=== PATIENT | male | born 1970 | race Caucasian/White ===

== ENCOUNTER 2019-05-07 05:55 | Emergency (ER) | payer BC ==
[2019-05-07] MEDS ORDERED: Zofran 4 MG/2 ML VIAL IV ONE (06:05)
[2019-05-07] MEDS ORDERED: Sodium Chloride 0.9% 1000 ML 1,000 ML IV STA ×2 (06:05→07:13)
[2019-05-07] MEDS ORDERED: MORPHINE SULFATE 2 MG INJ IV ONE ×2 (06:15→08:13)
[2019-05-07] MEDS ORDERED: MORPHINE SULFATE 2 MG INJ ONE ×2 (06:19→08:16)
[2019-05-07] MEDS ORDERED: Zofran 4 MG/2 ML VIAL ONE (06:19)
[2019-05-07] MEDS ORDERED: Sodium Chloride 0.9% 1000 ML 1,000 ML ONE ×3 (06:19→08:45)
--- NOTE | 2019-05-07 06:21 | ERPHSYRPT ---
- History of Present Illness Historian: patient, family Exam Limitations: no limitations Patient Subjective Stated Complaint: pt states he has been sick since . was diagnosed with flu a on . states he has had increased pain since. Triage Nursing Assessment: pt alert and oriented, answers questions approp. pt ambulatory with steady gait noted. respirations nonlabored. exp wheezes noted in rt lower. skin warm and dry. mucous membranes dry. Timing/Duration: week(s) (1) Activities at Onset: none Quality: cramping Abdominal Pain Onset Location: generalized abdomen Pain Radiation: no radiation Severity of Pain-Max: moderate Severity of Pain-Current: moderate Modifying Factors: Improves With: vomiting Associated Symptoms: diarrhea, fever/chills, fatigue, loss of appetite, nausea, vomiting Previous symptoms: same symptoms as today Hx Tetanus, Diphtheria Vaccination/Date Given: Yes Hx Influenza Vaccination/Date Given: No Immunizations Up to Date: Yes <ROBERT BAKER - Last Filed: 05/07/19 06:34> <MALENA TINSLEY - Last Filed: 05/07/19 12:54> - History of Present Illness Time Seen by Provider: 05/07/19 06:05 Physician History: pt diagnosed with flu but was past the timeframe for tamiflu treatment. using OTCs but not getting better. No co-morbid conditions such as DM, CAD or lung dz. Mainly abd pain, NVD and weakness. (ROBERT BAKER) Allergies/Adverse Reactions: No Known Drug Allergies Allergy (Verified 05/07/19 06:15) Home Medications: No Reportable Medications [No Reported Medications] 05/07/19 [History] - Review of Systems Constitutional: Fever, Chills, Fatigue, Lethargy, Malaise, Weakness, Weight Loss (10lbs over past week.) Eyes: No Symptoms Ears, Nose, & Throat: Nose Congestion Respiratory: Cough, No Dyspnea Cardiac: No Chest Pain, No Edema, No Syncope Abdominal/Gastrointestinal: Abdominal Pain, Nausea, Vomiting, Diarrhea Genitourinary Symptoms: No Dysuria Musculoskeletal: Back Pain, Neck Pain, Myalgias Skin: No Rash Neurological: No Dizziness, No Focal Weakness, No Sensory Changes Psychological: No Symptoms Endocrine: No Symptoms All Other Systems: Reviewed and Negative <ROBERT BAKER - Last Filed: 05/07/19 06:34> - Past Medical History Pertinent Past Medical History: No - Past Surgical History Past Surgical History: Yes Male Surgical History: Testicular Surgery Other Surgical History: testicle removed - Social History Smoking Status: Former smoker Exposure to second hand smoke: No Drug Use: none Patient Lives Alone: No <ROBERT BAKER Last Filed: 05/07/19 06:34> - Physical Exam General Appearance: mild distress, alert Eye Exam: PERRL/EOMI, eyes nml inspection Ears, Nose, Throat Exam: normal ENT inspection, pharynx normal, dry mucous membranes Neck Exam: normal inspection, non-tender, supple, full range of motion Respiratory Exam: normal breath sounds, lungs clear, No respiratory distress Cardiovascular Exam: normal heart sounds, tachycardia Gastrointestinal/Abdomen Exam: soft, tenderness (Generalized), No mass, No guarding, No rebound, No hepatomegaly Rectal Exam: deferred Back Exam: normal inspection, normal range of motion, No CVA tenderness, No vertebral tenderness Extremity Exam: normal inspection, normal range of motion, pelvis stable Neurologic Exam: alert, oriented x 3, cooperative, normal mood/affect, nml cerebellar function, sensation nml, No motor deficits Skin Exam: normal color, warm, dry SpO2: 93 <ROBERT BAKER Filed: 05/07/19 06:34> - Nursing Vital Signs Nursing Vital Signs: Initial Vital Signs Temperature 98.1 F 05/07/19 06:01 Pulse Rate 119 H 05/07/19 06:01 Blood Pressure 127/99 05/07/19 06:01 O2 Sat by Pulse Oximetry 93 L 05/07/19 06:01 Pain Scale Pain Intensity 9 - Course Nursing assessment & vital signs reviewed: Yes <ROBERT BAKER - Last Filed: 05/07/19 06:34> - Course EKG Interpreted by Me: RATE ([id number]), Sinus Rhythm, NORMAL AXIS, NORMAL INTERVALS, NORMAL QRS, Other (no comparison ekg) <MALENA TINSLEY - Last Filed: 05/07/19 12:54> Ordered Tests: Active Orders 24 hr Category Date Time Status EKG-ER Only STAT Care 05/07/19 08:12 Active IV Insertion STAT Care 05/07/19 06:05 Active CHEST 1 VIEW (PORTABLE) Stat Exams 05/07/19 06:09 Completed CHEST WITH CONTRAST [CT] Stat Exams 05/07/19 10:51 Taken ABG [ARTERIAL BLOOD GASES] Stat Lab 05/07/19 12:00 Completed BLOOD CULTURE Stat Lab 05/07/19 06:45 Received BMP Stat Lab 05/07/19 08:38 Completed CBC W DIFF Stat Lab 05/07/19 06:18 Completed CMP Stat Lab 05/07/19 06:18 Completed D-DIMER QUANTITATIVE Stat Lab 05/07/19 06:45 Completed LIPASE Stat Lab 05/07/19 06:18 Completed Lactic Acid Routine Lab 05/07/19 11:47 Completed Lactic Acid Stat Lab 05/07/19 06:22 Completed Lactic Acid Stat Lab 05/07/19 08:26 Completed Manual Differential NC Stat Lab 05/07/19 06:18 Completed PROTIME WITH INR Stat Lab 05/07/19 06:18 Completed TROPONIN Q3H Lab 05/07/19 06:45 Completed TROPONIN Q3H Lab 05/07/19 11:24 Completed TROPONIN Q3H Lab 05/07/19 14:15 Ordered TROPONIN Q3H Lab 05/07/19 17:15 Ordered TROPONIN Q3H Lab 05/07/19 20:15 Ordered TROPONIN Q3H Lab 05/07/19 23:15 Ordered TSH [TSH, 3RD Generation] Stat Lab 05/07/19 11:25 Completed UA W/RFX UR CULTURE Stat Lab 05/07/19 08:30 Completed Oxygen High Flow per RT 60% RT 05/07/19 12:44 Active Respiratory Therapy Assessment DAILY RT 05/07/19 08:16 Active Medication Summary Generic Name Dose Route Start Last Admin Trade Name Freq PRN Reason Stop Dose Admin Sodium Chloride 1,000 mls @ 250 mls/hr 05/07/19 08:30 05/07/19 08:45 Sodium Chloride 0.9% 1000 Ml IV 06/06/19 08:29 250 mls/hr .Q4H MARIA C Administration Discontinued Medications Generic Name Dose Route Start Last Admin Trade Name Freq PRN Reason Stop Dose Admin Hydrocodone Bitart/Acetaminophen 15 ml 05/07/19 11:45 05/07/19 12:01 Hydrocodone-Acetamin 2.5-108/5 Ml Solution PO 05/07/19 11:46 15 ml STAT STA Administration Hydrocodone Bitart/Acetaminophen Confirm 05/07/19 11:59 Hydrocodone-Acetamin 2.5-108/5 Ml Solution Administered 05/07/19 12:00 Dose 15 ml .ROUTE .STK-MED ONE Albuterol Sulfate 2.5 mg 05/07/19 08:07 05/07/19 08:13 Proventil 2.5 Mg/3 Ml Neb IH 05/07/19 08:08 2.5 mg STAT ONE Administration Albuterol Sulfate Confirm 05/07/19 08:11 Proventil 2.5 Mg/3 Ml Neb Administered 05/07/19 08:12 Dose 2.5 mg IH .STK-MED ONE Benzonatate 200 mg 05/07/19 07:13 05/07/19 07:15 Tessalon Perles 100 Mg PO 05/07/19 07:14 200 mg STAT ONE Administration Benzonatate Confirm 05/07/19 07:14 Tessalon Perles 100 Mg Administered 05/07/19 07:15 Dose 200 mg PO .STK-MED ONE Sodium Chloride 1,000 mls @ 999 mls/hr 05/07/19 06:05 05/07/19 07:55 Sodium Chloride 0.9% 1000 Ml IV 05/07/19 07:05 Infused .Q1H1M STA Infusion Sodium Chloride Confirm 05/07/19 06:19 Sodium Chloride 0.9% 1000 Ml Administered 05/07/19 06:20 Dose 1,000 mls @ ud .ROUTE .STK-MED ONE Ceftriaxone Sodium/Dextrose 1 g in 50 mls @ 100 mls/hr 05/07/19 06:31 07:55 Rocephin 1 Gm-D5w 50 Ml Bag IV 05/07/19 07:00 Infused STAT ONE Infusion Ceftriaxone Sodium/Dextrose Confirm 05/07/19 06:34 Rocephin 1 Gm-D5w 50 Ml Bag Administered 05/07/19 06:35 Dose 1 g in 50 mls @ ud IV .STK-MED ONE Sodium Chloride 1,000 mls @ 999 mls/hr 05/07/19 07:13 05/07/19 07:55 Sodium Chloride 0.9% 1000 Ml IV 05/07/19 08:13 Infused .Q1H1M STA Infusion Sodium Chloride Confirm 05/07/19 07:14 Sodium Chloride 0.9% 1000 Ml Administered 05/07/19 07:15 Dose 1,000 mls @ ud .ROUTE .STK-MED ONE Methylprednisolone Sodium Succinate 125 mg 05/07/19 11:44 05/07/19 12:01 Solu-Medrol 125 Mg IV 05/07/19 11:45 125 mg STAT ONE Administration Methylprednisolone Sodium Succinate Confirm 05/07/19 11:59 Solu-Medrol 125 Mg Administered 05/07/19 12:00 Dose 125 mg .ROUTE .STK-MED ONE Morphine Sulfate 2 mg 05/07/19 06:15 05/07/19 06:25 Morphine Sulfate 2 Mg Inj IV 05/07/19 06:16 2 mg STAT ONE Administration Morphine Sulfate Confirm 05/07/19 06:19 Morphine Sulfate 2 Mg Inj Administered 05/07/19 06:20 Dose 2 mg .ROUTE .STK-MED ONE Morphine Sulfate 2 mg 05/07/19 08:13 05/07/19 08:43 Morphine Sulfate 2 Mg Inj IV 05/07/19 08:14 2 mg STAT ONE Administration Morphine Sulfate Confirm 05/07/19 08:16 Morphine Sulfate 2 Mg Inj Administered 05/07/19 08:17 Dose 2 mg .ROUTE .STK-MED ONE Ondansetron HCl 4 mg 05/07/19 06:05 05/07/19 06:25 Zofran 4 Mg/2 Ml Vial IV 05/07/19 06:06 4 mg STAT ONE Administration Ondansetron HCl Confirm 05/07/19 06:19 Zofran 4 Mg/2 Ml Vial Administered 05/07/19 06:20 Dose 4 mg .ROUTE .STK-MED ONE Lab/Rad Data: Laboratory Result Diagrams 05/07/19 06:18 05/07/19 08:38 Laboratory Results 05/07/19 05/07/19 05/07/19 Range/Units 12:00 11:47 11:25 WBC (4.0-10.5) K/mm3 RBC (4.1-5.6) M/mm3 Hgb (12.5-18.0) gm/dl Hct (42-50) % MCV (78-100) fl MCH (26-32) pg MCHC (32-36) g/dl RDW (11.5-14.0) % Plt Count (150-450) K/mm3 MPV (7.5-11.0) fl Segmented Neutrophils (36.-66.) % Band Neutrophils (0.0-2.0) % Lymphocytes (Manual) (24-44) % Monocytes (Manual) (0.0-12.0) % Platelet Estimate (NORMAL) RBC Morphology PT (8.83-12.87) SECONDS INR (0.8-3.0) D-Dimer (215-500) ng/mL Puncture Site RIGHT RADIAL pCO2 29 L (35-45) mmHg pO2 59 L (75-100) mmHg Base Excess -2.6 L (-2.0-2.0) O2 Saturation 90.3 L (94-100) g/dF ABG pH 7.45 (7.35-7.45) ABG HCO3 20.2 L (22-28) ABG O2 Sat (Measured) 92.3 L (95-100) % Ju[place] Test YES A-a Gradient 161 a/A Ratio 0.27 Hemoglobin 13.8 Carboxyhemoglobin 1.3 (0.0-6.9) % THgb Methemoglobin 1.0 L (1.4-1.5) % Temperature 37.0 C POC O2 Flow Rate 36 % Sodium (137-145) mmol/L Potassium 4.0 (3.5-5.1) mmol/L Chloride (98-107) mmol/L Carbon Dioxide (22-30) mmol/L Anion Gap (5-15) MEQ/L BUN (9-20) mg/dL Creatinine (0.66-1.25) mg/dL Estimated GFR ML/MIN Glucose (74-106) mg/dL Lactic Acid 6.1 H (0.4-2.0) Calcium (8.4-10.2) mg/dL Total Bilirubin (0.2-1.3) mg/dL AST (17-59) U/L ALT (0-50) U/L Alkaline Phosphatase (38-126) U/L Troponin I (0.000-0.034) ng/mL Serum Total Protein (6.3-8.2) g/dL Albumin (3.5-5.0) g/dL Lipase (23-300) U/L TSH 3rd Generation 0.701 (0.47-4.68) mIU/L Urine Color (YELLOW) Urine Appearance (CLEAR) Urine pH (5-6) Ur Specific [place] (1.005-1.025) Urine Protein (Negative) Urine Ketones (NEGATIVE) Urine Blood (0-5) Harrison/ul Urine Nitrite (NEGATIVE) Urine Bilirubin (NEGATIVE) Urine Urobilinogen (0-1) mg/dL Ur Leukocyte Esterase (NEGATIVE) Urine WBC (Auto) (0-5) /HPF Urine RBC (Auto) (0-2) /HPF U Epithel Cells (Auto) (FEW) /HPF Urine Bacteria (Auto) (NEGATIVE) /HPF Urine Culture Reflexed (NO) Urine Glucose (NEGATIVE) mg/dL 05/07/19 05/07/19 05/07/19 Range/Units 11:24 08:38 08:30 WBC (4.0-10.5) K/mm3 RBC (4.1-5.6) M/mm3 Hgb (12.5-18.0) gm/dl Hct (42-50) % MCV (78-100) fl MCH (26-32) pg MCHC (32-36) g/dl RDW (11.5-14.0) % Plt Count (150-450) K/mm3 MPV (7.5-11.0) fl Segmented Neutrophils (36.-66.) % Band Neutrophils (0.0-2.0) % Lymphocytes (Manual) (24-44) % Monocytes (Manual) (0.0-12.0) % Platelet Estimate (NORMAL) RBC Morphology PT (8.83-12.87) SECONDS INR (0.8-3.0) D-Dimer (215-500) ng/mL Puncture Site pCO2 (35-45) mmHg pO2 (75-100) mmHg Base Excess (-2.0-2.0) O2 Saturation (94-100) g/dF ABG pH (7.35-7.45) ABG HCO3 (22-28) ABG O2 Sat (Measured) (95-100) % Juventino Test A-a Gradient a/A Ratio Hemoglobin Carboxyhemoglobin (0.0-6.9) % THgb Methemoglobin (1.4-1.5) % Temperature C POC O2 Flow Rate % Sodium 137 (137-145) mmol/L Potassium 4.0 (3.5-5.1) mmol/L Chloride 99 (98-107) mmol/L Carbon Dioxide 25 (22-30) mmol/L Anion Gap 16.9 H (5-15) MEQ/L BUN 22 H (9-20) mg/dL Creatinine 1.50 H (0.66-1.25) mg/dL Estimated GFR 53.1 ML/MIN Glucose 128 H (74-106) mg/dL Lactic Acid (0.4-2.0) Calcium 7.7 L D (8.4-10.2) mg/dL Total Bilirubin (0.2-1.3) mg/dL AST (17-59) U/L ALT (0-50) U/L Alkaline Phosphatase (38-126) U/L Troponin I < 0.012 (0.000-0.034) ng/mL Serum Total Protein (6.3-8.2) g/dL Albumin (3.5-5.0) g/dL Lipase (23-300) U/L TSH 3rd Generation (0.47-4.68) mIU/L Urine Color YELLOW (YELLOW) Urine Appearance CLEAR (CLEAR) Urine pH 5.0 (5-6) Ur Specific [place] 1.006 (1.005-1.025) Urine Protein NEGATIVE (Negative) Urine Ketones NEGATIVE (NEGATIVE) Urine Blood NEGATIVE (0-5) Harrison/ul Urine Nitrite NEGATIVE (NEGATIVE) Urine Bilirubin NEGATIVE (NEGATIVE) Urine Urobilinogen NEGATIVE (0-1) mg/dL Ur Leukocyte Esterase NEGATIVE (NEGATIVE) Urine WBC (Auto) 3-5 (0-5) /HPF Urine RBC (Auto) NONE (0-2) /HPF U Epithel Cells (Auto) NONE (FEW) /HPF Urine Bacteria (Auto) NONE (NEGATIVE) /HPF Urine Culture Reflexed NO (NO) Urine Glucose NEGATIVE (NEGATIVE) mg/dL 05/07/19 05/07/19 05/07/19 Range/Units 08:26 06:45 06:45 WBC (4.0-10.5) K/mm3 RBC (4.1-5.6) M/mm3 Hgb (12.5-18.0) gm/dl Hct (42-50) % MCV (78-100) fl MCH (26-32) pg MCHC (32-36) g/dl RDW (11.5-14.0) % Plt Count (150-450) K/mm3 MPV (7.5-11.0) fl Segmented Neutrophils (36.-66.) % Band Neutrophils (0.0-2.0) % Lymphocytes (Manual) (24-44) % Monocytes (Manual) (0.0-12.0) % Platelet Estimate (NORMAL) RBC Morphology PT (8.83-12.87) SECONDS INR (0.8-3.0) D-Dimer 1399 H* (215-500) ng/mL Puncture Site pCO2 (35-45) mmHg pO2 (75-100) mmHg Base Excess (-2.0-2.0) O2 Saturation (94-100) g/dF ABG pH (7.35-7.45) ABG HCO3 (22-28) ABG O2 Sat (Measured) (95-100) % Juvention Test A-a Gradient a/A Ratio Hemoglobin Carboxyhemoglobin (0.0-6.9) % THgb Methemoglobin (1.4-1.5) % Temperature C POC O2 Flow Rate % Sodium (137-145) mmol/L Potassium (3.5-5.1) mmol/L Chloride (98-107) mmol/L Carbon Dioxide (22-30) mmol/L Anion Gap (5-15) MEQ/L BUN (9-20) mg/dL Creatinine (0.66-1.25) mg/dL Estimated GFR ML/MIN Glucose (74-106) mg/dL Lactic Acid 3.1 H (0.4-2.0) Calcium (8.4-10.2) mg/dL Total Bilirubin (0.2-1.3) mg/dL AST (17-59) U/L ALT (0-50) U/L Alkaline Phosphatase (38-126) U/L Troponin I < 0.012 (0.000-0.034) ng/mL Serum Total Protein (6.3-8.2) g/dL Albumin (3.5-5.0) g/dL Lipase (23-300) U/L TSH 3rd Generation (0.47-4.68) mIU/L Urine Color (YELLOW) Urine Appearance (CLEAR) Urine pH (5-6) Ur Specific [place] (1.005-1.025) Urine Protein (Negative) Urine Ketones (NEGATIVE) Urine Blood (0-5) Harrison/ul Urine Nitrite (NEGATIVE) Urine Bilirubin (NEGATIVE) Urine Urobilinogen (0-1) mg/dL Ur Leukocyte Esterase (NEGATIVE) Urine WBC (Auto) (0-5) /HPF Urine RBC (Auto) (0-2) /HPF U Epithel Cells (Auto) (FEW) /HPF Urine Bacteria (Auto) (NEGATIVE) /HPF Urine Culture Reflexed (NO) Urine Glucose (NEGATIVE) mg/dL 05/07/19 05/07/19 05/07/19 Range/Units 06:22 06:18 06:18 WBC (4.0-10.5) K/mm3 RBC (4.1-5.6) M/mm3 Hgb (12.5-18.0) gm/dl Hct (42-50) % MCV (78-100) fl MCH (26-32) pg MCHC (32-36) g/dl RDW (11.5-14.0) % Plt Count (150-450) K/mm3 MPV (7.5-11.0) fl Segmented Neutrophils (36.-66.) % Band Neutrophils (0.0-2.0) % Lymphocytes (Manual) (24-44) % Monocytes (Manual) (0.0-12.0) % Platelet Estimate (NORMAL) RBC Morphology PT 16.6 H (8.83-12.87) SECONDS INR 1.46 (0.8-3.0) D-Dimer (215-500) ng/mL Puncture Site pCO2 (35-45) mmHg pO2 (75-100) mmHg Base Excess (-2.0-2.0) O2 Saturation (94-100) g/dF ABG pH (7.35-7.45) ABG HCO3 (22-28) ABG O2 Sat (Measured) (95-100) % Ju[place] Test A-a Gradient a/A Ratio Hemoglobin Carboxyhemoglobin (0.0-6.9) % THgb Methemoglobin (1.4-1.5) % Temperature C POC O2 Flow Rate % Sodium 135 L (137-145) mmol/L Potassium 3.9 (3.5-5.1) mmol/L Chloride 92 L (98-107) mmol/L Carbon Dioxide 25 (22-30) mmol/L Anion Gap 21.8 H (5-15) MEQ/L BUN 25 H (9-20) mg/dL Creatinine 1.60 H (0.66-1.25) mg/dL Estimated GFR 49.3 ML/MIN Glucose 154 H (74-106) mg/dL Lactic Acid 4.0 H (0.4-2.0) Calcium 9.1 (8.4-10.2) mg/dL Total Bilirubin 1.20 (0.2-1.3) mg/dL AST 34 (17-59) U/L ALT 21 (0-50) U/L Alkaline Phosphatase 94 (38-126) U/L Troponin I (0.000-0.034) ng/mL Serum Total Protein 8.0 (6.3-8.2) g/dL Albumin 4.0 (3.5-5.0) g/dL Lipase 45 (23-300) U/L TSH 3rd Generation (0.47-4.68) mIU/L Urine Color (YELLOW) Urine Appearance (CLEAR) Urine pH (5-6) Ur Specific [place] (1.005-1.025) Urine Protein (Negative) Urine Ketones (NEGATIVE) Urine Blood (0-5) Harrison/ul Urine Nitrite (NEGATIVE) Urine Bilirubin (NEGATIVE) Urine Urobilinogen (0-1) mg/dL Ur Leukocyte Esterase (NEGATIVE) Urine WBC (Auto) (0-5) /HPF Urine RBC (Auto) (0-2) /HPF U Epithel Cells (Auto) (FEW) /HPF Urine Bacteria (Auto) (NEGATIVE) /HPF Urine Culture Reflexed (NO) Urine Glucose (NEGATIVE) mg/dL 05/07/19 Range/Units 06:18 WBC 10.8 H (4.0-10.5) K/mm3 RBC 4.69 (4.1-5.6) M/mm3 Hgb 15.3 (12.5-18.0) gm/dl Hct 43.9 (42-50) % MCV 93.6 (78-100) fl MCH 32.6 H (26-32) pg MCHC 34.9 (32-36) g/dl RDW 12.5 (11.5-14.0) % Plt Count 199 (150-450) K/mm3 MPV 11.2 H (7.5-11.0) fl Segmented Neutrophils 53 (36.-66.) % Band Neutrophils 30 H (0.0-2.0) % Lymphocytes (Manual) 11 L (24-44) % Monocytes (Manual) 6 (0.0-12.0) % Platelet Estimate NORMAL (NORMAL) RBC Morphology NORMAL PT (8.83-12.87) SECONDS INR (0.8-3.0) D-Dimer (215-500) ng/mL Puncture Site pCO2 (35-45) mmHg pO2 (75-100) mmHg Base Excess (-2.0-2.0) O2 Saturation (94-100) g/dF ABG pH (7.35-7.45) ABG HCO3 (22-28) ABG O2 Sat (Measured) (95-100) % [place] Test A-a Gradient a/A Ratio Hemoglobin Carboxyhemoglobin (0.0-6.9) % THgb Methemoglobin (1.4-1.5) % Temperature C POC O2 Flow Rate % Sodium (137-145) mmol/L Potassium (3.5-5.1) mmol/L Chloride (98-107) mmol/L Carbon Dioxide (22-30) mmol/L Anion Gap (5-15) MEQ/L BUN (9-20) mg/dL Creatinine (0.66-1.25) mg/dL Estimated GFR ML/MIN Glucose (74-106) mg/dL Lactic Acid (0.4-2.0) Calcium (8.4-10.2) mg/dL Total Bilirubin (0.2-1.3) mg/dL AST (17-59) U/L ALT (0-50) U/L Alkaline Phosphatase (38-126) U/L Troponin I (0.000-0.034) ng/mL Serum Total Protein (6.3-8.2) g/dL Albumin (3.5-5.0) g/dL Lipase (23-300) U/L TSH 3rd Generation (0.47-4.68) mIU/L Urine Color (YELLOW) Urine Appearance (CLEAR) Urine pH (5-6) Ur Specific [place] (1.005-1.025) Urine Protein (Negative) Urine Ketones (NEGATIVE) Urine Blood (0-5) Harrison/ul Urine Nitrite (NEGATIVE) Urine Bilirubin (NEGATIVE) Urine Urobilinogen (0-1) mg/dL Ur Leukocyte Esterase (NEGATIVE) Urine WBC (Auto) (0-5) /HPF Urine RBC (Auto) (0-2) /HPF U Epithel Cells (Auto) (FEW) /HPF Urine Bacteria (Auto) (NEGATIVE) /HPF Urine Culture Reflexed (NO) Urine Glucose (NEGATIVE) mg/dL <ROBERT BAKER - Last Filed: 05/07/19 06:34> - Progress Counseled pt/family regarding: lab results, diagnosis, rad results <MALENA TINSLEY - Last Filed: 05/07/19 12:54> - Progress Progress Note: 05/07/19 06:34 Pt's care has been transferred to oncoming physician Dr. Tinsley at shift change. (ROBERT BAKER) 05/07/19 11:[address] higgins initially. he states not his pt. call physician accreditation manager. spoke with dr. walden. i reviewed pts labs, ekg, xray results. she would like a tsh and respiratory panel obtained. 05/07/19 11:27 05/07/19 12:02 i re examined pt. mod distress. vs-tachycardia, lungs-clear, tachypneic, cv- tachycardia, abd-soft, ntnd, ext no edemaand took new history. pt states he does vape. no longer smokes cigarettes. pt denies abd pain. his flu studies from 05/03/2019 were obtained from nearby urgent care clinic and positive for influenza A. will obtain an ABG 05/07/19 12:04 05/07/19 12:[id number] mcgrath(pulomonologist). i reviewed pt hx and condition. he accepts pt to be transferred to [facility] ed. dx hypoxia, bilat pulmonary airspace dz, early ards contacted ED doctor dr. anthony. he accepts pt in transfer to ED. pt refuses transfer via EMS. he wants to go via pov. i d/w pt regarding risks of worsening condition and if not tranferring via ems/ambulance. i also d/w spouse. he is still adamant about not being transferred via ambulance (MALENA TINSLEY) <ROBERT BAKER - Last Filed: 05/07/19 06:34> - Departure Departure Disposition: Transfer Critical Care Time: Yes Critical Care Time(excluding separately billable procedures): Critical 75-104 mins <MALENA TINSLEY - Last Filed: 05/07/19 12:54> - Departure Clinical Impression: Influenza A, Hypoxia, Acute respiratory distress syndrome (ARDS) Condition: Fair Referrals: VIDA HIGGINS [Primary Care Provider] -
[2019-05-07 06:28] LABS: INR 1.46 (0.8-3.0); PROTIME 16.6 SECONDS (8.83-12.87)
[2019-05-07 06:30] LABS: Hematocrit 43.9 % (42-50); Hemoglobin 15.3 gm/dl (12.5-18.0); Mean Cell Volume 93.6 fl (78-100); Mean Corpuscular Hemoglobin 32.6 pg (26-32); Mean Corpuscular Hgb Concent. 34.9 g/dl (32-36); Mean Platelet Volume 11.2 fl (7.5-11.0); Platelet Count 199 K/mm3 (150-450); Red Blood Count 4.69 M/mm3 (4.1-5.6); Red Cell Distribution Width 12.5 % (11.5-14.0); White Blood Count 10.8 K/mm3 (4.0-10.5)
[2019-05-07] MEDS ORDERED: ROCEPHIN 1 Gm-D5w 50 ml Bag** 1 G/50 ML IVPB IV ONE ×2 (06:31→06:34)
[2019-05-07 06:32] LABS: ANION GAP 21.8 MEQ/L (5-15); BILIRUBIN,TOTAL 1.2 mg/dL (0.2-1.3); Calcium 9.1 mg/dL (8.4-10.2); Creatinine 1 1.6 mg/dL (0.66-1.25); Potassium 3.9 mmol/L (3.5-5.1)
[2019-05-07 06:55] LABS: BAND 30 % (0.0-2.0); Lymphocytes 11 % (24-44); Monocyte 6 % (0.0-12.0); Neutrophils 53 % (36.-66.); Platelet Estimate NORMAL (NORMAL); Total Cells Counted 100
[2019-05-07] MEDS ORDERED: Tessalon Perles 100 MG PO ONE ×2 (07:13→07:14)
[2019-05-07] MEDS ORDERED: PROVENTIL 2.5 MG/3 ML NEB IH ONE ×2 (08:07→08:11)
[2019-05-07] MEDS ORDERED: Sodium Chloride 0.9% 1000 ML 1,000 ML IV SCH (08:30)
--- NOTE | 2019-05-07 09:08 | XRAY ---
Indication: Fever and cough. Comparison: None Portable chest demonstrates patchy airspace disease bilaterally without consolidation/effusion. Remaining heart and bony thorax normal.
[2019-05-07 09:26] LABS: ANION GAP 16.9 MEQ/L (5-15); Calcium 7.7 mg/dL (8.4-10.2); Creatinine 1 1.5 mg/dL (0.66-1.25)
[2019-05-07 09:51] LABS: Appearance CLEAR (CLEAR); Bilirubin NEGATIVE (NEGATIVE); Blood NEGATIVE Ery/ul (0-5); Glucose NEGATIVE (NEGATIVE); Ketones NEGATIVE (NEGATIVE); Leukocyte Esterase NEGATIVE (NEGATIVE); Nitrite NEGATIVE (NEGATIVE); Protein,Urine Dip NEGATIVE (Negative); Specific Gravity 1.006 (1.005-1.025); Urobilinogen NEGATIVE mg/dL (0-1)
[2019-05-07] MEDS ORDERED: solu-MEDROL 125 MG IV ONE (11:44)
[2019-05-07] MEDS ORDERED: HYDROCODONE-ACETAMIN 2.5-108/5 ML SOLUTION PO STA (11:45)
[2019-05-07] MEDS ORDERED: solu-MEDROL 125 MG ONE (11:59)
[2019-05-07] MEDS ORDERED: HYDROCODONE-ACETAMIN 2.5-108/5 ML SOLUTION ONE (11:59)
[2019-05-07 12:09] LABS: A-aADO2 161; ABG HEMOGLOBIN 13.8; ABG SITE RIGHT RADIAL; ALLEN TEST OK? YES; ARTERIAL BLD GAS O2 SATURATION 92.3 % (95-100); ARTERIAL BLOOD GAS BASE EXCESS -2.6 (-2.0-2.0); ARTERIAL BLOOD GAS FIO2 36 %; ARTERIAL BLOOD GAS PCO2 29 mmHg (35-45); ARTERIAL BLOOD GAS PO2 59 mmHg (75-100); ARTERIAL BLOOD GAS pH 7.45 (7.35-7.45); CARBOXYHEMOGLOBIN 1.3 % THgb (0.0-6.9); HCO3- 20.2 (22-28); HGB O2 SAT 90.3 g/dF (94-100); paO2 pAO1 0.27
[2019-05-07 13:08] VITALS: BP 119/71; PULSE 125; O2SAT 96
--- NOTE | 2019-05-09 08:05 | XRAY ---
Indication: Chest pain and short of breath. Flu. Elevated d-dimer. Multiple contiguous axial images obtained through the chest using 80 cc Isovue 370 contrast and PE protocol. Comparison: CT chest without contrast October 10, 2007. There is good opacification of the pulmonary arteries to include the lobar and segmental branches. Respiration artifact especially through the lung bases degrades the study and limits evaluation for pulmonary embolus. No obvious pulmonary embolus. Heart is not enlarged. Aorta is normal in course and caliber. Small nonpathologic mediastinal and bilateral hilar lymph nodes. Examination of the lung parenchyma demonstrates diffuse patchy airspace disease greatest in both upper lobes with multi-foci consolidation. No effusion. Bony thorax intact. Limited upper abdomen demonstrates 1.4 cm right renal cyst. Impression: 1. Pulmonary embolus evaluation limited by respiration artifact. No obvious pulmonary embolus. 2. Diffuse bilateral airspace disease. 3. Incidental right renal cyst.
== END 2019-05-07 13:37 | disposition short-term general hospital (02) ==
LOC: ED 05:55
DX: J09.X2 Influenza due to identified novel influenza A virus with other respiratory manifestations (principal); J80 Acute respiratory distress syndrome; R19.7 Diarrhea, unspecified; R50.9 Fever, unspecified; R53.83 Other fatigue; R11.2 Nausea with vomiting, unspecified
CPT/HCPCS: 36000; 36415; 36600; 71045; 71260; 80048; 80053; 81001; 82375; 82803; 83605; 83690; 84443; 84484; 85025; 85379; 85610; 87040; 93005; 94640; 96360; 96361; 96365; 96374; 96375; 96376; 99285; 99291; 99292; J0696; J2270; J2405; J2930; J7609; A9270-GY

== ENCOUNTER 2021-06-15 05:53 | Day surgery (SDC) | payer BC ==
[2021-06-15] MEDS ORDERED: Lactated Ringers 1,000 ML IV SCH (06:30)
[2021-06-15 06:47] LABS: ANION GAP 14.7 MEQ/L (5-15); BLOOD UREA NITROGEN 17 mg/dL (9-20); CHLORIDE 108 mmol/L (98-107); Carbon Dioxide 22 mmol/L (22-30); Creatinine 1 1.27 mg/dL (0.66-1.25); EST GLOMERULAR FILTRATION RATE > 60.0 ML/MIN; Glucose 95 mg/dL (74-106); Potassium 4.5 mmol/L (3.5-5.1); SODIUM 140 mmol/L (137-145)
[2021-06-15] MEDS ORDERED: DIPRIVAN 200 MG/20 ML IV ONE (07:37)
[2021-06-15] MEDS ORDERED: Versed 2 MG/2 ML Injection ONE (07:37)
[2021-06-15 08:48] VITALS: O2SAT 95
[2021-06-15 09:19] VITALS: BP 105/73; PULSE 75
--- NOTE | 2021-06-15 10:00 | OP ---
SURGERY DATE/TIME: 06/15/2021 0735 PREOPERATIVE DIAGNOSIS: Screening exam. POSTOPERATIVE DIAGNOSIS: Small polyp in the transverse colon and small polyp in the sigmoid colon. PROCEDURE: Colonoscopy with cold forceps biopsy. SURGEON: Dr. Rojo. ANESTHESIA: MAC. Medications given by anesthesia department. HISTORY: The patient is a 51-year-old white male patient presenting now for screening colonoscopy. He was appraised of the risks of the procedure including the risk of perforation, phlebitis, untoward reaction to medication, bleeding and missed lesions. The patient verbalized his understanding and desired to have the procedure performed. DESCRIPTION OF PROCEDURE: The patient was given the medications by the anesthesia department. He had continuous pulse oximetry, ECG monitoring, intermittent blood pressure monitoring during the examination. He was placed in the left lateral decubitus position. A digital rectal examination was performed and revealed normal anal sphincter tone, no masses. The flexible Olympus pediatric colonoscope was used to intubate the rectum. A view of the colon was developed sequentially to the cecum. Upon insertion and withdrawal, there was noted a small polyp in the transverse colon. It appeared to be most likely hyperplastic polyp. There was a larger polyp in the sigmoid colon which looks like it may be approximately tubular adenoma and this is removed using cold biopsy forceps technique to destroy the lesion. The scope was removed from the patient who tolerated the procedure well and was sent back to [facility] recovery in good condition. The prep was noted to be good.
== END 2021-06-15 08:48 | disposition home or self-care (01) ==
LOC: SDC 05:53
PROVIDERS: ATTEND Family Medicine
DX: Z12.11 Encounter for screening for malignant neoplasm of colon (principal); D12.5 Benign neoplasm of sigmoid colon; D12.3 Benign neoplasm of transverse colon; I10 Essential (primary) hypertension
CPT/HCPCS: 36415; 80048; 88305; J2250; J2704